=== PATIENT | female | born 1955 | race Caucasian/White ===

== ENCOUNTER 2021-01-03 09:35 | Day surgery (SDC) | payer MEDICARE, OTHER ==
[~2021-01-03 09:35] MED LIST: Ak-Dilate OPHTHALMIC*** 1.065 ML, Cyclogyl 1% OPHTH SOL 5 ML 1.065 ML, GATIFLOXACIN 0.5... OP ONE; BETADINE 5% OPHTHALMIC 30 ML OP ONE; Lactated Ringers 1,000 ML IV SCH; NON-FORMULARY ITEM OP ONE; TETRACAINE 0.5% STERI-UNIT SOL OP ONE; cefUROXime sodium 0.005 GM in Sodium Chloride Flush 30 ML*** 0.5 ML IJ SCH
[2021-01-03] MEDS ORDERED: LIDOCAINE HCL 1% 50 MG/5 ML VL PF IJ ONE (09:36)
[2021-01-03] MEDS ORDERED: Epinephrine Preservative Free 1 MG/ML IJ ONE (09:36)
[2021-01-03] MEDS ORDERED: ACETAZOLAMIDE 250 MG TABLET PO ONE (10:00)
[2021-01-03] MEDS ORDERED: Zofran 4 MG/2 ML VIAL IV PRN (10:00)
[2021-01-03] MEDS ORDERED: Lactated Ringers 1,000 ML IV SCH (10:00)
[2021-01-03] MEDS ORDERED: Lactated Ringers 1,000 ML IV ONE (10:23)
[2021-01-03] MEDS ORDERED: DIPRIVAN 200 MG/20 ML IV ONE (12:08)
[2021-01-03] MEDS ORDERED: Versed 2 MG/2 ML Injection ONE (12:08)
[2021-01-03] MEDS ORDERED: SUBLIMAZE 100 MCG/2 ML ONE (12:08)
[2021-01-03] MEDS ORDERED: ROBINUL ONE (12:08)
[2021-01-03 13:39] VITALS: BP 130/81; PULSE 65; O2SAT 95
== END 2021-01-03 13:50 | disposition home or self-care (01) ==
LOC: SDC 09:35
PROVIDERS: ATTEND Ophthalmology
DX: H25.811 Combined forms of age-related cataract, right eye (principal); Z79.899 Other long term (current) drug therapy
CPT/HCPCS: C1780; J0171; J2001; J2250; J2704; J3010; A9270-GY

== ENCOUNTER 2021-01-31 06:53 | Day surgery (SDC) | payer MEDICARE, OTHER ==
[2021-01-31] MEDS ORDERED: Epinephrine Preservative Free 1 MG/ML IJ ONE (06:54)
[2021-01-31] MEDS ORDERED: LIDOCAINE HCL 1% 50 MG/5 ML VL PF IJ ONE (06:54)
[2021-01-31] MEDS ORDERED: Lactated Ringers 1,000 ML IV ONE (06:59)
[2021-01-31] MEDS ORDERED: Zofran 4 MG/2 ML VIAL IV PRN (07:00)
[2021-01-31] MEDS ORDERED: TETRACAINE 0.5% STERI-UNIT SOL OP ONE (07:00)
[2021-01-31] MEDS ORDERED: cefUROXime sodium 0.005 GM in Sodium Chloride Flush 30 ML*** 0.5 ML IJ ONE (07:00)
[2021-01-31] MEDS ORDERED: Lactated Ringers 1,000 ML IV SCH (07:00)
[2021-01-31] MEDS ORDERED: NON-FORMULARY ITEM OP ONE (07:00)
[2021-01-31] MEDS ORDERED: BETADINE 5% OPHTHALMIC 30 ML OP ONE (07:00)
[2021-01-31] MEDS ORDERED: NON-FORMULARY ITEM IJ ONE (07:00)
[2021-01-31] MEDS ORDERED: Ak-Dilate OPHTHALMIC*** 1.065 ML, Cyclogyl 1% OPHTH SOL 5 ML 1.065 ML, GATIFLOXACIN 0.5... OP ONE ×4 (07:00)
[2021-01-31] MEDS ORDERED: ACETAZOLAMIDE 250 MG TABLET PO ONE (07:00)
[2021-01-31] MEDS: TETRACAINE 0.5% STERI-UNIT SOL OP ONE ×2 (07:34→08:00)
[2021-01-31] MEDS ORDERED: ROBINUL ONE (08:29)
[2021-01-31] MEDS ORDERED: DIPRIVAN 200 MG/20 ML IV ONE (08:29)
[2021-01-31] MEDS ORDERED: SUBLIMAZE 100 MCG/2 ML ONE (08:29)
[2021-01-31] MEDS ORDERED: Versed 2 MG/2 ML Injection ONE (08:30)
== END 2021-01-31 10:50 | disposition home or self-care (01) ==
LOC: SDC 06:53
PROVIDERS: ATTEND Ophthalmology
DX: H25.812 Combined forms of age-related cataract, left eye (principal); Z79.899 Other long term (current) drug therapy
CPT/HCPCS: C1780; J0171; J2001; J2250; J2704; J3010; A9270-GY